=== PATIENT | female | born 1965 | race Two or more races ===

== ENCOUNTER 2024-12-12 17:00 | Inpatient (IN) | payer OTHER ==
[~2024-12-12] VITALS: Ht 162.6 cm; Wt 72.6 kg
[~2024-12-12 17:00] MED LIST: ACCUNEB0.63 MG/3; AMOX1TAB12 PO; BUDEO.25 IH; CLARITIN10 M1; KETO10TA2 PO; LEVAQUIN750 MG PO; METFORMIN HCL500 MG; ORPH100T PO; PROVENTIL0.5 ML/2.5 IH; PROVENTIL3 ML/2.5 M IH; SINGULAIR10 MG PO; TESSALON200 MG PO; ZITHROMAX500 MG PO
[2024-12-12] MEDS ORDERED: IPRATROPIUM/ALBUTEROL SULFATE 3 ML AMPUL.NEB IH SCH (20:45)
[2024-12-12 21:15] LABS: HEMATOCRIT 43.8 % (36.0-45.00); HEMOGLOBIN 15.2 g/dL (12.0-15.00); MEAN CELL VOLUME 87.9 fL (80.00-100.00); MEAN CORPUSCULAR HEMOGLOBIN 30.5 pg (27.00-32.0); MEAN CORPUSCULAR HGB CONC 34.7 g/dl (32.0-36.0); PLATELET COUNT 322 K/uL (150-450); RED BLOOD COUNT 4.99 M/uL (4.00-6.00)
[2024-12-12 21:39] LABS: ALBUMIN 3.5 gm/dL (3.4-5.0); BILIRUBIN TOTAL 0.95 mg/dL (0.3-1.2); CALCIUM 9.8 mg/dL (8.5-10.1); CREATININE SERUM 0.86 mg/dL (0.55-1.02); GFR 68.01; GLOBULINA 5.4 G/DL (2.4-3.5); POTASSIUM 4.31 mEq/L (3.5-5.1); TOTAL PROTEIN 8.9 gm/dL (6.4-8.2)
[2024-12-12 22:19] LABS: URINE APPEARANCE Cloudy; URINE BILIRRUBIN Small (NEGATIVE); URINE BLOOD Negative; URINE COLOR Dark Yellow; URINE GLUCOSE Negative (NEGATIVE); URINE LEUKOCYTE Moderate; URINE NITRATE Negative; URINE PROTEIN 30 (NEGATIVE)
[2024-12-12 22:22] LABS: URINE EPITHELIAL CELLS 68.7 uL (0.0-38.8); URINE RBC 6.3 uL (0.0-20.8)
[2024-12-12 22:23] LABS: ABG PH 7.413 (7.35-7.45); ABG pCO2 40.1 mmHg (35-45); BASE EXCESS 0.4 mmol/l; SaO2 94.6 %; Tco2 26.2 mmol/l; o2 21 %
[2024-12-12 22:24] LABS: allen test SATISFACTORY; puncture site RADIAL RIGHT
[2024-12-12 22:27] LABS: ABG PO2 72.5 mmHg (80-100)
[2024-12-12 22:34] LABS: URINE BACTERIA > 9821.5 uL (0.0-1933); URINE CAST 1.03 uL (0.0-1.40); URINE KETONE 80 (NEGATIVE)
[2024-12-13] MEDS ORDERED: AZITHROMYCIN 500 MG VIAL IV ONE (00:15)
[2024-12-13] MEDS ORDERED: CEFTRIAXONE SODIUM 2,000 MG VIAL IV ONE (00:15)
[2024-12-13] MEDS ORDERED: 0.9 % SODIUM CHLORIDE 1,000 ML IV SCH (00:30)
[2024-12-13] MEDS ORDERED: INSULIN LISPRO 1,000 UNIT/10 ML UNITS SUBCUTANEO PRN ×2 (00:45→12:00)
[2024-12-13] MEDS ORDERED: DEXTROSE 50 % IN WATER 0.5 G/ML DISP.SYRIN IV PRN ×2 (00:45→12:00)
[2024-12-13] MEDS ORDERED: ACETAMINOPHEN 500 MG GEL..CAP PO PRN (00:45)
[2024-12-13] MEDS ORDERED: GUAIFEN/DEXTROMETHORPHAN/PE 10 ML BLIST.PACK PO SCH (01:00)
[2024-12-13] MEDS ORDERED: METHYLPREDNISOLONE SOD SUCC 40 MG VIAL IV SCH ×2 (01:00→17:00)
[2024-12-13] MEDS ORDERED: IPRATROPIUM BROMIDE 0.5 MG/2.5 ML AMPUL.NEB IH SCH (01:00)
[2024-12-13] MEDS ORDERED: LEVALBUTEROL HCL 1.25 MG/3 ML SOLUTION IH SCH (01:00)
[2024-12-13 03:13] VITALS: BP 111/52
[2024-12-13 05:45] VITALS: BP 123/78; O2SAT 95
[2024-12-13 06:35] LABS: INR 1.19; PARTIAL THROMBOPLASTIN TIME 33.4 SECONDS (22.0-34.0); PROTHROMBIN TIME 12.8 SECONDS (9.0-11.5)
[2024-12-13 08:23] VITALS: BP 111/74; O2SAT 95
[2024-12-13] MEDS ORDERED: AZITHROMYCIN 500 MG VIAL IV SCH (09:00)
[2024-12-13] MEDS ORDERED: CEFTRIAXONE SODIUM 2,000 MG in 0.9 % SODIUM CHLORIDE 100 ML IV SCH (09:00)
[2024-12-13] MEDS ORDERED: FAMOTIDINE/PF 20 MG in 0.9 % SODIUM CHLORIDE 8 ML IV PUSH SCH (09:00)
[2024-12-13] MEDS ORDERED: AZITHROMYCIN 500 MG in 0.9 % SODIUM CHLORIDE 250 ML IV SCH (09:00)
[2024-12-13] MEDS ORDERED: ENOXAPARIN SODIUM 40 MG/0.4 ML SYRINGE SUBCUTANEO SCH (09:00)
[2024-12-13 16:13] VITALS: BP 109/62; O2SAT 96
[2024-12-13] MEDS ORDERED: LACTOBACILLUS ACIDOPHILUS 1 CAP CAP PO SCH (17:00)
[2024-12-14 00:21] VITALS: BP 121/74; O2SAT 95
[2024-12-14 06:21] LABS: HEMATOCRIT 37.5 % (36.0-45.00); HEMOGLOBIN 12.5 g/dL (12.0-15.00); MEAN CELL VOLUME 89.1 fL (80.00-100.00); MEAN CORPUSCULAR HEMOGLOBIN 29.7 pg (27.00-32.0); MEAN CORPUSCULAR HGB CONC 33.3 g/dl (32.0-36.0); PLATELET COUNT 321 K/uL (150-450); RED BLOOD COUNT 4.21 M/uL (4.00-6.00); RED CELL DISTRIBUTION WIDTH 12.4 % (11.5-14.5)
[2024-12-14 07:05] LABS: BILIRUBIN TOTAL 0.3 mg/dL (0.3-1.2); CREATININE SERUM 0.7 mg/dL (0.55-1.02); GFR 86.25; GLOBULINA 3.9 G/DL (2.4-3.5); MAGNESIUM 2.1 mg/dL (1.8-2.4); POTASSIUM 4.04 mEq/L (3.5-5.1); TOTAL PROTEIN 6.9 gm/dL (6.4-8.2)
[2024-12-14 07:07] LABS: C-REACTIVE PROTEIN 8.29 MG/DL (0.00-0.29)
[2024-12-14] MEDS ORDERED: AZITHROMYCIN 500 MG VIAL IV ONE (07:46)
[2024-12-14 08:00] VITALS: BP 109/67; O2SAT 96
[2024-12-14 17:00] VITALS: BP 98/61; O2SAT 95
[2024-12-15 00:29] VITALS: BP 134/77; O2SAT 100
[2024-12-15] MEDS ORDERED: METHYLPREDNISOLONE SOD SUCC 40 MG VIAL IV SCH (01:00)
[2024-12-15] MEDS ORDERED: AZITHROMYCIN 500 MG VIAL IV ONE (06:46)
[2024-12-15 10:13] VITALS: BP 132/82; O2SAT 98
== END 2024-12-15 15:00 | disposition home or self-care (01) | DRG 194 ==
LOC: ER 17:01 → SURG 12-13 00:33
PROVIDERS: Internal Medicine Infectious Disease; Preventive Medicine Public Health & General Preventive Medicine; ADMIT Student in an Organized Health Care Education/Training Program; ATTEND Student in an Organized Health Care Education/Training Program
PROC: 4A033R1 Measurement of Arterial Saturation, Peripheral, Percutaneous Approach (ICD-10-PCS; principal; 2024-12-13)
PROC: 3E0F7GC Introduction of Other Therapeutic Substance into Respiratory Tract, Via Natural or Artificial Opening (ICD-10-PCS; 2024-12-13)
PROC: BB24ZZZ Computerized Tomography (CT Scan) of Bilateral Lungs (ICD-10-PCS; 2024-12-13)
DX: J18.9 Pneumonia, unspecified organism (principal); J45.41 Moderate persistent asthma with (acute) exacerbation; R06.02 Shortness of breath; R09.02 Hypoxemia; J00 Acute nasopharyngitis [common cold]; R50.9 Fever, unspecified; J40 Bronchitis, not specified as acute or chronic; M94.0 Chondrocostal junction syndrome [Tietze]; R07.1 Chest pain on breathing; B34.9 Viral infection, unspecified